=== PATIENT | male | born 1960 | race Caucasian/White ===

== ENCOUNTER 2020-08-23 00:13 | Inpatient (IN) | payer MEDICAID ==
[~2020-08-23] VITALS: Ht 170.2 cm; Wt 72.0 kg
[2020-08-23] VITALS (12 sets, daily range): BP systolic 89–122; BP diastolic 58–77
[2020-08-23] MEDS ORDERED: OMEP20TA5 PO (00:29)
[2020-08-23] MEDS ORDERED: potassium Cl 20 mEq SR tablet PO PRN ×2 (00:50)
[2020-08-23] MEDS ORDERED: magnesium hydroxide 30ml (MOM) UD suspension PO PRN (00:50)
[2020-08-23] MEDS ORDERED: potassium Cl 40MEQ/1/2NS 520ml 520 ML IV PRN ×2 (00:50)
[2020-08-23] MEDS ORDERED: ondansetron/PF 4mg/2ml inj IV PRN (00:50)
[2020-08-23] MEDS ORDERED: mag hydrox/Alum hydrox/simeth 30ml oral suspension PO PRN (00:50)
[2020-08-23] MEDS ORDERED: acetaminophen 325mg tablet PO PRN (00:50)
--- NOTE | 2020-08-23 02:54 | NUR ---
Patient doozing off during assessment. Attempted to DART but unable to complete.
[2020-08-23] MEDS: morphine 2 MG/ML inj. syringe IV PRN ×2 (04:08→09:37)
--- NOTE | 2020-08-23 06:10 | NUR ---
Patient in room PCU 3026. I have received report from Pardeep KIRBY and had the opportunity to ask questions and assume patient care.
--- NOTE | 2020-08-23 06:11 | NUR ---
Patient in room PCU 3026. I have received report from KOFI Roberto and had the opportunity to ask questions and assume patient care.
--- NOTE | 2020-08-23 06:11 | NUR ---
Problems reprioritized. Patient report given, questions answered & plan of care reviewed with paramjit.
[2020-08-23 07:06] LABS: BASOPHILS % (AUTO) 0.4 % (0-1); EOSINOPHILS # (AUTO) 0.1 X10'3 (0-0.9); EOSINOPHILS % (AUTO) 0.6 % (0-6); HEMATOCRIT 40.3 % (42.0-52.0); HEMOGLOBIN 13.5 g/dl (14.0-17.9); LYMPHOCYTES # (AUTO) 2.1 X10'3 (1.1-4.8); LYMPHOCYTES % (AUTO) 22.1 % (21-51); MEAN CORPUSCULAR HEMOGLOBIN 30.2 PG (27.0-31.0); MEAN CORPUSCULAR HGB CONC 33.5 g/dL (33.0-36.5); MEAN CORPUSCULAR VOLUME 90.1 FL (78-98); MEAN PLATELET VOLUME 7.4 FL (7.4-10.4); MONOCYTES # (AUTO) 0.6 X10'3 (0-0.9); MONOCYTES % (AUTO) 6.3 % (2-12); NEUTROPHILS # (AUTO) 6.8 X10'3 (1.8-7.7); NEUTROPHILS % (AUTO) 70.6 % (42-75); PLATELET COUNT 239 X10'3 (140-440); RED BLOOD COUNT 4.47 X10'6 (4.70-6.10); RED CELL DISTRIBUTION WIDTH 13.7 % (11.5-14.5); WHITE BLOOD COUNT 9.6 X10'3 (4.5-11.0)
[2020-08-23] MEDS: aspirin 325mg tablet, delayed-release (Ecotrin) PO SCH (07:18)
[2020-08-23] MEDS ORDERED: enoxaparin 30mg/0.3ml syringe SUBCUT SCH (08:00)
[2020-08-23] MEDS: K and/or MAG REPLACEMENT MC SCH ×3 (08:00→19:47)
[2020-08-23] MEDS ORDERED: enoxaparin 40mg/0.4ml syringe SUBCUT SCH (08:00)
[2020-08-23 08:04] LABS: ALBUMIN 3.6 G/DL (3.4-5.0); ANION GAP 10 (8-16); BLOOD UREA NITROGEN 16 MG/DL (7-18); BUN/CREATININE RATIO 21.1 (5.4-32.0); CALCIUM 8.6 MG/DL (8.5-10.1); CHLORIDE 104 MMOL/L (99-107); CREATININE 0.76 MG/DL (0.60-1.10); GLUCOSE 79 MG/DL (70-104); POTASSIUM 4.2 MMOL/L (3.5-5.1); SODIUM 140 MMOL/L (135-145); TOTAL CARBON DIOXIDE 26.5 MMOL/L (24-32); eGFR > 90 ML/MIN
--- NOTE | 2020-08-23 08:57 | NUR ---
PAGER ID: [phone] MESSAGE: Re: Willard Meeks. Room: 3026B. Do you want Jaimee ordered for Pt? Trops peaked at 0.33, now trending down. Pt is still NPO. -[facility] #[id number] -Dr. Pringle paged concerning Jaimee scan orders.
[2020-08-23] MEDS: carVEDilol 3.125mg tablet PO SCH ×2 (09:35→19:46)
[2020-08-23] MEDS ORDERED: magnesium Cl slow-release 64mg tablet PO PRN (10:15)
[2020-08-23] MEDS ORDERED: regadenoson 0.4mg/5ml syringe IV PRN (10:15)
[2020-08-23] MEDS ORDERED: nitroGLYCERIN 0.4mg SUBLingual tab SL PRN (10:15)
[2020-08-23] MEDS ORDERED: metoprolol tartrate 1mg/ml inj IV PRN (10:15)
[2020-08-23] MEDS ORDERED: aminophylline 250mg/10ml inj. IV PRN (10:15)
[2020-08-23] MEDS ORDERED: magnesium 4gm in 100ml NS 100 ML IV PRN (10:15)
[2020-08-23 11:11] LABS: CLARITY,URINE CLEAR (Clear); COLOR,URINE YELLOW (Yellow); GLUCOSE, URINE NEGATIVE (Neg); KETONES,URINE 15 mg/dl (Neg); LEUKOCYTE ESTERASE ,URINE NEGATIVE (Neg); NITRITES, URINE NEGATIVE (Neg); OCCULT BLOOD,URINE NEGATIVE (Neg); PROTEIN,URINE NEGATIVE (Neg); UROBILINOGEN,URINE 0.2 E.U/dL (0.2-1.0)
[2020-08-23 11:14] LABS: UA COLLECTION TYPE CLN CATCH MIDSTREAM
[2020-08-23 11:23] LABS: URINE AMPHETAMINE SCREEN POSITIVE (Neg); URINE BARBITUATE SCREEN NEGATIVE (Neg); URINE BENZODIAZEPINES SCREEN NEGATIVE (Neg); URINE CANNABINOID SCREEN NEGATIVE (Neg); URINE COCAINE SCREEN NEGATIVE (Neg); URINE METHADONE SCREEN NEGATIVE (Neg); URINE OPIATE SCREEN POSITIVE (Neg); URINE PHENCYCLIDINE SCREEN NEGATIVE (Neg)
--- NOTE | 2020-08-23 16:20 | NUR ---
PAGER ID: [phone] MESSAGE: Re: Willard Meeks. Room: 3026B. Still awaiting Jaimee scan results. Can I put diet order in for Pt, Heart Healthy? -[facility] #[id number] -Dr Pringle paged concerning Pt's diet order.
--- NOTE | 2020-08-23 18:00 | NUR ---
[place] documentation: I have reviewed and agree with all interventions, assessments performed and documented by Sonia KIRBY.
--- NOTE | 2020-08-23 18:10 | NUR ---
Problems reprioritized. Patient report given, questions answered & plan of care reviewed with Pardeep RN.
--- NOTE | 2020-08-23 18:15 | NUR ---
Problems reprioritized. Patient report given, questions answered & plan of care reviewed with KOFI Roberto.
--- NOTE | 2020-08-23 18:16 | NUR ---
Patient in room PCU 3026. I have received report from paramjit KIBRY and had the opportunity to ask questions and assume patient care.
[2020-08-23] MEDS: heparin, porcine 5000 units/ml vial SQ SCH (19:46)
[2020-08-24 02:00] VITALS: BP 126/71
--- NOTE | 2020-08-24 06:00 | NUR ---
Patient in room PCU 3026. I have received report from Pardeep KIRBY and had the opportunity to ask questions and assume patient care. Patient resting comfortably in bed and in no acute distress.
[2020-08-24 06:10] LABS: HEMOGLOBIN 13.1 g/dl (14.0-17.9)
[2020-08-24 06:14] LABS: BASOPHILS % (AUTO) 0.5 % (0-1); EOSINOPHILS # (AUTO) 0.1 X10'3 (0-0.9); EOSINOPHILS % (AUTO) 1.3 % (0-6); HEMATOCRIT 38.8 % (42.0-52.0); LYMPHOCYTES # (AUTO) 1.9 X10'3 (1.1-4.8); LYMPHOCYTES % (AUTO) 24.5 % (21-51); MEAN CORPUSCULAR HEMOGLOBIN 30.3 PG (27.0-31.0); MEAN CORPUSCULAR HGB CONC 33.8 g/dL (33.0-36.5); MEAN CORPUSCULAR VOLUME 89.7 FL (78-98); MONOCYTES # (AUTO) 0.6 X10'3 (0-0.9); MONOCYTES % (AUTO) 7.2 % (2-12); NEUTROPHILS # (AUTO) 5.1 X10'3 (1.8-7.7); NEUTROPHILS % (AUTO) 66.5 % (42-75); PLATELET COUNT 190 X10'3 (140-440); RED BLOOD COUNT 4.33 X10'6 (4.70-6.10); RED CELL DISTRIBUTION WIDTH 13.3 % (11.5-14.5); WHITE BLOOD COUNT 7.6 X10'3 (4.5-11.0)
--- NOTE | 2020-08-24 06:29 | NUR ---
Problems reprioritized. Patient report given, questions answered & plan of care reviewed with Reina KIRBY.
[2020-08-24 06:43] LABS: ALANINE AMINOTRANSFERASE 49 U/L (12-78); ALBUMIN 3.1 G/DL (3.4-5.0); ALBUMIN/GLOBULIN RATIO 0.8 (1.1-1.5); ALKALINE PHOSPHATASE 80 IU/L (46-116); ANION GAP 9 (8-16); ASPARTATE AMINO TRANSFERASE 34 U/L (10-37); BILIRUBIN,TOTAL 1.5 MG/DL (0.1-1.0); BLOOD UREA NITROGEN 17 MG/DL (7-18); BUN/CREATININE RATIO 18.3 (5.4-32.0); CALCIUM 8.3 MG/DL (8.5-10.1); CHLORIDE 102 MMOL/L (99-107); CHOL/HDL RATIO 2.5 (0.00-4.99); CHOLESTEROL 123 MG/DL (0-200); CREATININE 0.93 MG/DL (0.60-1.10); GLUCOSE 84 MG/DL (70-104); HDL CHOLESTEROL 49 MG/DL (35-60); LDL CHOLESTEROL 67 MG/DL (50-100); MAGNESIUM 1.8 MG/DL (1.5-2.4); PHOSPHORUS 2.5 MG/DL (2.3-4.5); POTASSIUM 3.9 MMOL/L (3.5-5.1); SODIUM 138 MMOL/L (135-145); TOTAL CARBON DIOXIDE 27.1 MMOL/L (24-32); TOTAL PROTEIN 7.2 G/DL (6.4-8.2); TRIGLYCERIDES 70 MG/DL (20-135); eGFR 83 ML/MIN
[2020-08-24 07:00] VITALS: BP 119/75
[2020-08-24] MEDS: K and/or MAG REPLACEMENT MC SCH ×4 (08:00→20:00)
[2020-08-24] MEDS: carVEDilol 3.125mg tablet PO SCH ×2 (08:35→19:56)
[2020-08-24] MEDS: pantoprazole 40mg Tablet.DR PO SCH (08:35)
[2020-08-24] MEDS: heparin, porcine 5000 units/ml vial SQ SCH ×2 (08:35→19:57)
[2020-08-24] MEDS: aspirin 325mg tablet, delayed-release (Ecotrin) PO SCH (08:35)
--- NOTE | 2020-08-24 10:17 | NUR ---
Problems reprioritized. Patient report given, questions answered & plan of care reviewed with Fabiano KIRBY patient resting in bed and in no acute distress.
[2020-08-24 15:00] VITALS: BP 116/78
[2020-08-24 18:00] VITALS: BP 115/73
--- NOTE | 2020-08-24 18:25 | NUR ---
Patient in room PCU 3026. I have received report from sarah beth KIRBY and had the opportunity to ask questions and assume patient care.
[2020-08-24 22:00] VITALS: BP 121/78
[2020-08-25 02:00] VITALS: BP 111/66
[2020-08-25] MEDS: morphine 2 MG/ML inj. syringe IV PRN ×3 (03:26→20:12)
[2020-08-25 06:10] LABS: BASOPHILS % (AUTO) 0.5 % (0-1); EOSINOPHILS # (AUTO) 0.2 X10'3 (0-0.9); EOSINOPHILS % (AUTO) 2.5 % (0-6); HEMATOCRIT 39.5 % (42.0-52.0); HEMOGLOBIN 13.3 g/dl (14.0-17.9); LYMPHOCYTES # (AUTO) 1.8 X10'3 (1.1-4.8); LYMPHOCYTES % (AUTO) 27.9 % (21-51); MEAN CORPUSCULAR HEMOGLOBIN 30.2 PG (27.0-31.0); MEAN CORPUSCULAR HGB CONC 33.8 g/dL (33.0-36.5); MEAN CORPUSCULAR VOLUME 89.6 FL (78-98); MEAN PLATELET VOLUME 7.3 FL (7.4-10.4); MONOCYTES # (AUTO) 0.6 X10'3 (0-0.9); MONOCYTES % (AUTO) 9.2 % (2-12); NEUTROPHILS # (AUTO) 3.9 X10'3 (1.8-7.7); NEUTROPHILS % (AUTO) 59.9 % (42-75); PLATELET COUNT 194 X10'3 (140-440); RED BLOOD COUNT 4.41 X10'6 (4.70-6.10); WHITE BLOOD COUNT 6.6 X10'3 (4.5-11.0)
--- NOTE | 2020-08-25 06:23 | NUR ---
Problems reprioritized. Patient report given, questions answered & plan of care reviewed with yvette.
[2020-08-25 06:28] LABS: ALANINE AMINOTRANSFERASE 43 U/L (12-78); ALBUMIN/GLOBULIN RATIO 0.7 (1.1-1.5); ALKALINE PHOSPHATASE 71 IU/L (46-116); ANION GAP 6 (8-16); ASPARTATE AMINO TRANSFERASE 25 U/L (10-37); BILIRUBIN,TOTAL 0.9 MG/DL (0.1-1.0); BLOOD UREA NITROGEN 14 MG/DL (7-18); BUN/CREATININE RATIO 17.9 (5.4-32.0); CALCIUM 8.3 MG/DL (8.5-10.1); CHLORIDE 101 MMOL/L (99-107); CREATININE 0.78 MG/DL (0.60-1.10); GLUCOSE 104 MG/DL (70-104); MAGNESIUM 1.9 MG/DL (1.5-2.4); PHOSPHORUS 2.8 MG/DL (2.3-4.5); POTASSIUM 3.5 MMOL/L (3.5-5.1); SODIUM 134 MMOL/L (135-145); TOTAL CARBON DIOXIDE 27.2 MMOL/L (24-32); TOTAL PROTEIN 7.1 G/DL (6.4-8.2); eGFR > 90 ML/MIN
[2020-08-25 07:21] VITALS: BP 106/72
[2020-08-25] MEDS: K and/or MAG REPLACEMENT MC SCH ×4 (08:00→20:00)
[2020-08-25] MEDS: pantoprazole 40mg Tablet.DR PO SCH (08:23)
[2020-08-25] MEDS: aspirin 325mg tablet, delayed-release (Ecotrin) PO SCH (08:24)
[2020-08-25] MEDS: carVEDilol 3.125mg tablet PO SCH ×2 (08:24→20:11)
[2020-08-25] MEDS: heparin, porcine 5000 units/ml vial SQ SCH ×2 (08:26→20:11)
--- NOTE | 2020-08-25 09:43 | NUR ---
Patient in room PCU 3024. I have received report from Lester KIRBY and had the opportunity to ask questions and assume patient care.
[2020-08-25 11:00] VITALS: BP 110/67
[2020-08-25 15:00] VITALS: BP 120/67
[2020-08-25] MEDS ORDERED: NITR0.4T51 SL (15:43)
[2020-08-25] MEDS ORDERED: COR3.125T PO (15:43)
[2020-08-25] MEDS ORDERED: ASPI-1071 PO (15:43)
[2020-08-25] MEDS ORDERED: FURO-150 PO (15:43)
[2020-08-25] MEDS ORDERED: POTA10TA36 PO (15:44)
[2020-08-25 18:00] VITALS: BP 131/78
--- NOTE | 2020-08-25 18:20 | NUR ---
Patient in room PCU 3026. I have received report from [place]/ Ondina KIRBY and had the opportunity to ask questions and assume patient care.
--- NOTE | 2020-08-25 18:20 | NUR ---
Problems reprioritized. Patient report given, questions answered & plan of care reviewed with Pardeep RN.
[2020-08-25 22:00] VITALS: BP 111/70
[2020-08-26 02:00] VITALS: BP 121/75
[2020-08-26] MEDS: morphine 2 MG/ML inj. syringe IV PRN (03:19)
[2020-08-26] MEDS ORDERED: LORazepam 2 mg/ml vial IV PRN (05:45)
--- NOTE | 2020-08-26 05:49 | NUR ---
Patient started to complain of 7/10 chest pain around 0530. Patient stated it was only hurting when he took a breathe. EKG ordered. Patient also very jittery and moving around in bed and unable to concentrate. Patient was doozing off while I was trying to assess his pain. Patient has hx of ETOH. Dr. Vargas notified who ordered withdraw protocol.
[2020-08-26 06:08] LABS: BASOPHILS % (AUTO) 0.4 % (0-1); EOSINOPHILS # (AUTO) 0.2 X10'3 (0-0.9); HEMATOCRIT 39.6 % (42.0-52.0); HEMOGLOBIN 13.2 g/dl (14.0-17.9); LYMPHOCYTES # (AUTO) 1.9 X10'3 (1.1-4.8); LYMPHOCYTES % (AUTO) 32.1 % (21-51); MEAN CORPUSCULAR HEMOGLOBIN 29.8 PG (27.0-31.0); MEAN CORPUSCULAR HGB CONC 33.4 g/dL (33.0-36.5); MEAN PLATELET VOLUME 7.4 FL (7.4-10.4); MONOCYTES # (AUTO) 0.7 X10'3 (0-0.9); MONOCYTES % (AUTO) 11.8 % (2-12); NEUTROPHILS % (AUTO) 51.7 % (42-75); PLATELET COUNT 220 X10'3 (140-440); RED BLOOD COUNT 4.45 X10'6 (4.70-6.10); RED CELL DISTRIBUTION WIDTH 13.3 % (11.5-14.5); WHITE BLOOD COUNT 5.8 X10'3 (4.5-11.0)
--- NOTE | 2020-08-26 06:09 | NUR ---
Problems reprioritized. Patient report given, questions answered & plan of care reviewed with Ondina KIRBY.
[2020-08-26 06:33] LABS: ALANINE AMINOTRANSFERASE 42 U/L (12-78); ALBUMIN/GLOBULIN RATIO 0.7 (1.1-1.5); ALKALINE PHOSPHATASE 71 IU/L (46-116); ANION GAP 7 (8-16); ASPARTATE AMINO TRANSFERASE 27 U/L (10-37); BILIRUBIN,TOTAL 0.5 MG/DL (0.1-1.0); BLOOD UREA NITROGEN 13 MG/DL (7-18); BUN/CREATININE RATIO 15.7 (5.4-32.0); CALCIUM 8.7 MG/DL (8.5-10.1); CHLORIDE 101 MMOL/L (99-107); CREATININE 0.83 MG/DL (0.60-1.10); GLUCOSE 105 MG/DL (70-104); PHOSPHORUS 4.2 MG/DL (2.3-4.5); SODIUM 136 MMOL/L (135-145); TOTAL CARBON DIOXIDE 28.1 MMOL/L (24-32); TOTAL PROTEIN 7.1 G/DL (6.4-8.2); eGFR > 90 ML/MIN
--- NOTE | 2020-08-26 06:35 | NUR ---
Patient in room PCU 3024. I have received report from Pardeep KIRBY and had the opportunity to ask questions and assume patient care.
[2020-08-26 07:00] VITALS: BP 106/68
[2020-08-26] MEDS: K and/or MAG REPLACEMENT MC SCH ×2 (08:00)
[2020-08-26] MEDS ORDERED: thiamine 100mg tablet PO SCH (08:00)
[2020-08-26] MEDS: aspirin 325mg tablet, delayed-release (Ecotrin) PO SCH (08:27)
[2020-08-26] MEDS: carVEDilol 3.125mg tablet PO SCH (08:27)
[2020-08-26] MEDS: pantoprazole 40mg Tablet.DR PO SCH (08:27)
[2020-08-26] MEDS: heparin, porcine 5000 units/ml vial SQ SCH (08:28)
[2020-08-26 11:00] VITALS: BP 118/70
--- NOTE | 2020-08-26 11:12 | NUR ---
promotional table spacer PAGER ID: [phone] MESSAGE: Jacob [id number]. Would you like me to put in the discharge order for today, and discharge the patient? [place] [phone]
--- NOTE | 2020-08-26 14:44 | NUR ---
Pt discharged home at 1439. Patient new RX was called in to [facility] on [address]. All belongings were seent home with patient, PIV was removed, tele was d/c'd and patient received discharge packet and signed. Patient left via cab ride to pharmacy and then will be taken to the [place].
--- NOTE | 2020-08-27 13:46 | NUR ---
CASE MANAGEMENT DISCHARGE FOLLOW UP: T/c to pt, phone number is unallocated, unable to contact patient.
[2020-08-28] MEDS ORDERED: LORazepam 2 mg/ml vial IV PRN (05:45)
[2020-08-28] MEDS ORDERED: LORazepam 1 MG tablet PO PRN (05:45)
[2020-08-30] MEDS ORDERED: LORazepam 1 MG tablet PO PRN (05:45)
[2020-08-30] MEDS ORDERED: LORazepam 2 mg/ml vial IV PRN (05:45)
== END 2020-08-26 14:39 | disposition home or self-care (01) | DRG 190 ==
LOC: ER 00:14 → ED HOLD 00:46 → PCU 3S 02:00
PROVIDERS: ADMIT Internal Medicine; ATTEND Family Medicine
PROC: 4A02XM4 Measurement of Cardiac Total Activity, External Approach (ICD-10-PCS; principal; 2020-08-23)
PROC: 3E073KZ Introduction of Other Diagnostic Substance into Coronary Artery, Percutaneous Approach (ICD-10-PCS; 2020-08-23)
DX: I21.4 Non-ST elevation (NSTEMI) myocardial infarction (principal); I50.23 Acute on chronic systolic (congestive) heart failure; K21.9 Gastro-esophageal reflux disease without esophagitis; F17.210 Nicotine dependence, cigarettes, uncomplicated; F15.10 Other stimulant abuse, uncomplicated; F11.90 Opioid use, unspecified, uncomplicated; Z20.822 Contact with and (suspected) exposure to COVID-19; Z79.82 Long term (current) use of aspirin; Z80.9 Family history of malignant neoplasm, unspecified; I25.2 Old myocardial infarction; Z82.49 Family history of ischemic heart disease and other diseases of the circulatory system; Z79.899 Other long term (current) drug therapy; Z71.51 Drug abuse counseling and surveillance of drug abuser
CPT/HCPCS: 36415; 78452; 80048; 80053; 80061; 80305; 81003; 83036; 83735; 84100; 84443; 84484; 85025; 87081; 93005; 93017; 93306; 93308; 96372; 97116; 97161; 97530; 99285; A9500; G0378; J1644; J1650; J2270; J2785